=== PATIENT | male | born 1950 | race Caucasian/White ===

== ENCOUNTER → 2018-07-30 10:31 | Outpatient (CLI) | payer OTHER, SELFPAY ==
[2018-07-30 11:24] LABS: Add Manual Diff / Slide Review NO; Basophils Percent Auto 0.9 % (0-2); Eosinophils Percent Auto 3.6 % (2-4); Hematocrit 43.7 % (41-53); Hemoglobin 15.1 g/dL (13.5-17.5); Lymphocytes Percent Auto 27.3 % (25-40); Mean Corpuscular HGB Conc 34.5 % (30-36); Mean Corpuscular Hemoglobin 32.2 PG (26-34); Mean Corpuscular Volume 93.3 fL (80-100); Monocytes Percent Auto 9.2 % (3-14); Neutrophils Absolute Auto 3100 /uL (3000-5900); Platelet Count 162 X10^3/uL (150-400); Red Blood Cell Count 4.68 X10^6/uL (4.5-5.9); Red Cell Distribution Width 13.2 % (11.6-14.8); White Blood Cell Count 5.2 X10^3/uL (4.5-11.0)
[2018-07-30 11:33] LABS: Alanine Aminotransferase 47 IU/L (21-72); Albumin 4.3 g/dL (3.5-5.0); Albumin Globulin Ratio 1.6 (1.0-2.8); Alkaline Phosphatase 48 U/L (38-126); Aspartate Aminotransferase 38 IU/L (17-59); Bilirubin Total 0.8 mg/dL (0.2-1.3); Blood Urea Nitrogen 19 mg/dL (9-20); Calcium 9.3 mg/dL (8.4-10.2); Carbon Dioxide 28 mmol/L (22-32); Chloride 109 mmol/L (98-107); Cholesterol 159 mg/dL (140-199); Estimated Glomerular Filt Rate > 60.0 mL/min (>60); Globulin 2.7 g/dL (1.7-4.1); Glucose 98 mg/dL (80-110); HDL Cholesterol 47 mg/dL (40-60); HEMOLYSIS < 15 (0-50); LDL Cholesterol Calculated 90 mg/dL (<100); Potassium 4.3 mmol/L (3.4-5.1); Sodium 145 mmol/L (137-145); Triglycerides 110 mg/dL (35-150)
[2018-08-01 18:53] LABS: HLA B27 NEGATIVE (Negative)
== END ==
PROVIDERS: PCP Physician Assistant; Visit Provider Physician Assistant
DX: M54.5 Low back pain (principal); E78.5 Hyperlipidemia, unspecified
CPT/HCPCS: 36415; 80053; 80061; 85025; 86812

== ENCOUNTER → 2018-10-31 06:25 | Outpatient (CLI) | payer OTHER, SELFPAY ==
--- NOTE | 2018-10-31 | DI.RAD.S_ITS ---
PROCEDURE: XR KNEE LT 3V INDICATIONS: LEFT KNEE PAIN TECHNIQUE: 3 views of the knee were acquired. COMPARISON: [facility], , KNEE 1-2 VIEWS LEFT, 10/19/2016, 17:40. FINDINGS: Bones: Patient is status post prior left total knee arthroplasty. Alignment of left knee is anatomic. No gross hardware loosening or failure. No fractures or dislocations. No suspicious bony lesions. Soft tissues: No joint effusion. No suspicious soft tissue calcifications. IMPRESSION: Post left total knee arthroplasty with anatomic left knee alignment. No gross hardware complication. Dictated by: Harsh Ray M.D. on 10/31/2018 at 9:07 Approved by: Harsh Ray M.D. on 10/31/2018 at 9:08
== END ==
PROVIDERS: Family Provider Internal Medicine; PCP Physician Assistant; Visit Provider Physician Assistant
DX: M25.562 Pain in left knee (principal); Z96.652 Presence of left artificial knee joint
CPT/HCPCS: 73562

== ENCOUNTER → 2019-07-19 16:26 | Outpatient (CLI) | payer OTHER, SELFPAY ==
--- NOTE | 2019-07-19 | DI.RAD.S_ITS ---
PROCEDURE: XR SHOULDER LT MIN 2V INDICATIONS: left shoulder pain TECHNIQUE: 3 views of the shoulder were acquired. COMPARISON: None. FINDINGS: Bones: No fractures or dislocations. No suspicious bony lesions. Visualized ribs appear intact. Mild acromioclavicular and moderate glenohumeral joint narrowing with periarticular osteophyte formation. Superior subluxation of humeral head. Soft tissues: No suspicious soft tissue calcifications. IMPRESSION: 1. 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 2. Superior migration of the humeral head consistent with rotator cuff pathology and/or muscle atrophy. If indicated MRI could be performed to further evaluate the soft tissues. Dictated by: Raudel COLVIN Interpreted: Ally Bender MD on 07/19/2019 at 16:56 Approved by: Ally Bender M.D. on 07/19/2019 at 17:48
== END ==
PROVIDERS: Family Provider Internal Medicine; PCP Physician Assistant; Visit Provider Student in an Organized Health Care Education/Training Program
DX: M25.512 Pain in left shoulder (principal); M19.012 Primary osteoarthritis, left shoulder; M51.37 Other intervertebral disc degeneration, lumbosacral region
CPT/HCPCS: 73030

== ENCOUNTER 2019-09-04 15:15 | Outpatient (RCR) | payer OTHER, SELFPAY ==
--- NOTE | 2019-08-19 17:30 | PT.OIE ---
Current Diagnoses Pain in left shoulder (08/19/19) Sciatica, right side (08/19/19) Abnormal posture (08/19/19) Weakness (08/19/19) Visit Care Team Role Provider Type Asia Wilkinson PA-C Primary Care Provider Advanced Clinical Counselor Specialty: Internal Medicine Address: [address] [place] [id number] Email: [email or web address] Melendrez MD Family Provider Physician Specialty: Internal Medicine Address: [address] [place] [address], [phone] Email: Yelitza Gonzales PA-C Attending Provider Physician Specialty: Internal Medicine Address: [address] [place] [address], [id number] Email: [email or web address] Physical Therapy Initial Evaluation PT-OP-A Visit Information Start: 08/19/19 17:28 Freq: Status: Active Protocol: Document 08/19/19 16:45 DCW (Rec: 08/19/19 17:57 DCW [id number]) Out-Patient Physical Therapy Visit Information Visit Information Visit Type Initial Evaluation Visit Start Time 16:45 Visit Stop Time 17:30 Total Visit Minutes 45 Visit Number 1 Number of AUTOMOBILE SPRING REPAIRER Visits 0 Evaluation Information Evaluation Date 08/19/19 PT-OP-B Current Condition Start: 08/19/19 17:28 Freq: Status: Active Protocol: Document 08/19/19 16:45 DCW (Rec: 08/19/19 17:57 DCW [id number]) Current Condition History of Current Condition Onset Date ~one year Current Complaints Left shoulder and mid-back pain, right hip/leg pain History of Current Condition Pt is a 69 year old male who presents to skilled PT with multiple complaints today. Pt reports he has a several year history of left shoulder pain. Notes that he frequently has a painful clicking when lowering his left arm in abduction, as well as an associated persistent dull ache in the muscle that attaches the shoulder blade to the spine. Pt admits that this pain doesn't limit him too much, but prevents him from sleeping some nights. Additionally, pt complains of a one year history of posterior right hip pain, which typically radiates down the back of his leg to his knee. Pt reports it is worse when he sits for long periods of time. Pt also reports general back pain, which prevents him from standing still longer than 30 minutes. Always worse when he is inactive. Prior Treatments and Tests Shoulder MRI: 1. 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 2. Superior migration of the humeral head consistent with rotator cuff pathology and/or muscle atrophy. If indicated MRI could be performed to further evaluate the soft tissues. per Ally Bender MD on 2018 PT-OP-C Subjective Start: 08/19/19 17:28 Freq: Status: Active Protocol: Document 08/19/19 16:45 DCW (Rec: 08/19/19 17:57 DCW [id number]) Patient Questionnaires Oswestry Low Back Index Oswestry Score 34% Oswestry Impairment 20 to 39% Impaired (Score 20- 39) Quick Dash- Upper Extremity Quick Dash UE Score 15.91% Quick Dash UE Impairment 1 to 19% Impaired (Score 1-19) OP-PT Pain Assessment Pain Assessment Grid Paper Pain Assessment Grid Completed Yes Location Right Posterior Hip Intensity 4 Scale Used Numeric (1 - 10) Description Pressure,Stabbing,Tightness Upper Back Intensity 5 Scale Used Numeric (1 - 10) Description Aching,Dull Left Shoulder Intensity 3 Scale Used Numeric (1 - 10) Description- Other Clicking PT-OP-F Manual Assessment Start: 08/19/19 17:28 Freq: Status: Active Protocol: Document 08/19/19 16:45 DCW (Rec: 08/19/19 17:57 DCW [id number]) Manual Assessments Soft Tissue Assessment Soft Tissue Mobility Assessment Moderate-Severe tone R piriformis, tenderness to palpation 3/4 - Wincing and withdraw Mild tone left rhomboids, tenderness to palpation 1/4 - Complaint of pain Joint Mobility Assessment Joint Mobility Assessment noticeable clicking in shoulder ~30% of the time as pt lowers left arm from abduction left scapular winging PT-OP-J Posture/Palpation/Skin Start: 08/19/19 17:28 Freq: Status: Active Protocol: Document 08/19/19 16:45 DCW (Rec: 08/20/19 11:54 DCW [id number]) Posture Evaluation Position Sitting Shoulder Posture (L) Rounded Scapula Posture (L) Protracted,(L) Rotated Up, (L) Winged PT-OP-K Range of Motion Start: 08/19/19 17:28 Freq: Status: Active Protocol: Document 08/19/19 16:45 DCW (Rec: 08/20/19 11:54 DCW [id number]) Shoulder Goniometric Range of Motion Shoulder Left Active Shoulder ROM WFL Yes PT-OP-L Special Tests Start: 08/19/19 17:28 Freq: Status: Active Protocol: Document 08/19/19 16:45 DCW (Rec: 08/20/19 11:54 DCW [id number]) Special Tests Shoulder Special Tests Painful Arc Test Results L Positive when lowering Apprehension Test Test Results Negative Clunk Test Test Results Negative Drop Arm Rotator Cuff Test Results Negative Ritchie Meet Impingement Test Results Negative Passive ER Rotator Cuff Test Results Negative Lift-Off Rotator Cuff Test Results Negative Belly Press Test Results Negative AC Joint Compression Test Results Negative Hip Special Tests Piriformis Test Results Positive Straight Leg Raise Test Results Negative Scour Test Test Results Negative Posterior Labral Test Test Results Negative Betancur's Compression Test Results Negative NEELIMA Test Results Negative PT-OP-M Strength Start: 08/19/19 17:28 Freq: Status: Active Protocol: Document 08/19/19 16:45 DCW (Rec: 08/20/19 11:54 DCW [id number]) Shoulder Strength Shoulder Manual Muscle Testing Left Flexion 4+ Good+ Extension 5 Normal Abduction (C5) 5 Normal Adduction 5 Normal External Rotation 4 Good Internal Rotation 5 Normal Comments Pain with left resisted ER Hip Strength Hip Manual Muscle Testing Left Flexion (L2) 5 Normal Extension (S1) 5 Normal Abduction 5 Normal Adduction 5 Normal External Rotation 5 Normal Internal Rotation 4- Good- PT-OP-Q Treatments Start: 08/19/19 17:28 Freq: Status: Active Protocol: Document 08/19/19 16:45 DCW (Rec: 08/20/19 11:58 DCW [id number]) Therapeutic Exercises Supine Exercises Serratus punch Supine Exercise Name Serratus punch Side bilateral Piriformis Stretch Supine Exercise Name Figure-4, Dcnf-ly-Axmwthdj shoulder Side right Sidelying Exercises Reverse Clamshell Sidelying Exercise Name Reverse Clamshell Side right Sitting Exercises Self STM Sitting Exercise Name Self piriformis mobilization / c Tennis ball Side right PT-OP-T Assessment and Plan Start: 08/19/19 17:28 Freq: Status: Active Protocol: Document 08/19/19 16:45 DCW (Rec: 08/20/19 14:00 DCW [id number]) Physical Therapy Assessment Rehab Potential Rehabilitation Potential Excellent Evaluation Complexity Number of Personal Factors/Comorbidities 1-2 Number of Body Systems Impaired 1-2 Clinical Presentation at Evaluation Stable Impairments Impairments Activity Tolerance,Pain, Posture,ROM,Soft Tissue Mobility,Strength,Tone Goals Three Impairment Pt presents with left scapular winging Longterm Goal (LTG) Pt to exhibit equal posture bilaterally throughout his shoulder blades. 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 LTG Duration 10/19/19 One Impairment Pt does not have an appropriate home exercise program Short Term Goal (STG) Pt to be independent and compliant with an appropriate HEP STG Duration 09/18/19 Assessment Summary Assessment Pt presents with a few separate complaints, all relatively mild. The first complaint, shoulder pain and clicking, appears to be associated with left parascapular weakness and decreased scapulothoracic rhythm. At rest, his left shoulder blade wings out, which changes the positioning of the GH joint, likely causing his pain and clicking. Pt showed no signs of rotator cuff or labral involvement. Pt also has some mild rhomboid /parascapular tightness on the left, likely responsible for his mid-back aching. Secondly, pt's complaints of right posterior hip pain which radiates down to his knee appears to be due to a severely tight piriformis. No indications of lumbar or hip joint involvement, and pt exhibits increased tone and tenderness with palpation of the piriformis. Pt should improve with focus on STM and flexibility, as well as IR strengthening. Pt overall is in very good shape, and is motivated to work hard to improve on his current condition. It is likely that pt will not need a long course of therapy prior to discharging to an independent program. Physical Therapy Plan Frequency and Duration Frequency of Treatment 2x/Week Duration of Treatment 8 weeks Plan of Care Start Date 08/19/19 Plan of Care End Date 10/14/19 Therapeutic Interventions Therapeutic Interventions Aquatic Therapy,Home Exercise Program,Joint Mobilizations, Manual Therapy,Patient/ Caregiver Education,Self-Care/ Home Management,Soft Tissue Mobilization,Therapeutic Exercises Modalities Cold Pack/Ice Massage,Hot Packs Next Visit Focus/Plan Next Note Type Treatment Note Next Visit Plan Piriformis stretching/STM, lower trap strengthening, shoulder strengthening
--- NOTE | 2019-08-19 17:30 | PT.OPPOC ---
Current Diagnoses Pain in left shoulder (08/19/19) Sciatica, right side (08/19/19) Abnormal posture (08/19/19) Weakness (08/19/19) Visit Care Team Role Provider Type Asia Wilkinson PA-C Primary Care Provider Advanced Swimming Pool Maintenance Supervisor Specialty: Internal Medicine Address: [address] [place] [id number] Email: [email or web address] Will Melendrez MD Family Provider Physician Specialty: Internal Medicine Address: [address] [place] [address], [phone] Email: [email or web address] Yelitza Gonzales PA-C Attending Provider Physician Specialty: Internal Medicine Address: [address] [place] [address], [id number] Email: [email or web address] Plan Of Care PT-OP-T Assessment and Plan Start: 08/19/19 17:28 Freq: Status: Active Protocol: Document 08/19/19 16:45 DCW (Rec: 08/20/19 14:00 DCW [id number]) Physical Therapy Assessment Rehab Potential Rehabilitation Potential Excellent Evaluation Complexity Number of Personal Factors/Comorbidities 1-2 Number of Body Systems Impaired 1-2 Clinical Presentation at Evaluation Stable Impairments Impairments Activity Tolerance,Pain, Posture,ROM,Soft Tissue Mobility,Strength,Tone Goals Three Impairment Pt presents with left scapular winging Healthcare Social Worker Goal (LTG) Pt to exhibit equal posture bilaterally throughout his shoulder blades. 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 LTG Duration 10/19/19 One Impairment Pt does not have an appropriate home exercise program Short Term Goal (STG) Pt to be independent and compliant with an appropriate HEP STG Duration 09/18/19 Assessment Summary Assessment Pt presents with a few separate complaints, all relatively mild. The first complaint, shoulder pain and clicking, appears to be associated with left parascapular weakness and decreased scapulothoracic rhythm. At rest, his left shoulder blade wings out, which changes the positioning of the GH joint, likely causing his pain and clicking. Pt showed no signs of rotator cuff or labral involvement. Pt also has some mild rhomboid /parascapular tightness on the left, likely responsible for his mid-back aching. Secondly, pt's complaints of right posterior hip pain which radiates down to his knee appears to be due to a severely tight piriformis. No indications of lumbar or hip joint involvement, and pt exhibits increased tone and tenderness with palpation of the piriformis. Pt should improve with focus on STM and flexibility, as well as IR strengthening. Pt overall is in very good shape, and is motivated to work hard to improve on his current condition. It is likely that pt will not need a long course of therapy prior to discharging to an independent program. Physical Therapy Plan Frequency and Duration Frequency of Treatment 2x/Week Duration of Treatment 8 weeks Plan of Care Start Date 08/19/19 Plan of Care End Date 10/14/19 Therapeutic Interventions Therapeutic Interventions Aquatic Therapy,Home Exercise Program,Joint Mobilizations, Manual Therapy,Patient/ Caregiver Education,Self-Care/ Home Management,Soft Tissue Mobilization,Therapeutic Exercises Modalities Cold Pack/Ice Massage,Hot Packs Next Visit Focus/Plan Next Note Type Treatment Note Next Visit Plan Piriformis stretching/STM, lower trap strengthening, shoulder strengthening Plan of Care Dates Plan of Care Start Date 08/19/19 Plan of Care End Date 10/14/19
--- NOTE | 2019-09-04 16:00 | PT.OTN ---
Current Diagnoses Pain in left shoulder (09/04/19) Sciatica, right side (09/04/19) Abnormal posture (09/04/19) Weakness (09/04/19) Physical Therapy Treatment Note PT-OP-A Visit Information Start: 08/19/19 17:28 Freq: Status: Active Protocol: Document 09/04/19 15:30 DCW (Rec: 09/04/19 15:59 DCW [id number]) Out-Patient Physical Therapy Visit Information Visit Information Visit Type Treatment Note Visit Start Time 15:30 Visit Stop Time 16:00 Total Visit Minutes 30 Visit Number 2 Number of INSTRUMENTATION ENGINEERING TECHNICIAN Visits 0 Evaluation Information Evaluation Date 08/19/19 PT-OP-B Current Condition Start: 08/19/19 17:28 Freq: Status: Active Protocol: Document 08/19/19 16:45 DCW (Rec: 08/19/19 17:57 DCW [id number]) Current Condition History of Current Condition Onset Date ~one year Current Complaints Left shoulder and mid-back pain, right hip/leg pain History of Current Condition Pt is a 69 year old male who presents to skilled PT with multiple complaints today. Pt reports he has a several year history of left shoulder pain. Notes that he frequently has a painful clicking when lowering his left arm in abduction, as well as an associated persistent dull ache in the muscle that attactes the shoulder blade to the spine. Pt admits that this pain doesn't limit him too much, but prevents him from sleeping some nights. Additionally, pt complains of a one year history of posterior right hip pain, which typically radiates down the back of his leg to his knee. Pt reports it is worse when he sits for long periods of time. Pt also reports general back pain, which prevents him from standing still longer than 30 minutes. Always worse when he is inactive. Prior Treatments and Tests Shoulder MRI: 1. 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 2. Superior migration of the humeral head consistent with rotator cuff pathology and/or muscle atrophy. If indicated MRI could be performed to further evaluate the soft tissues. per Ally Bender MD on 2018 PT-OP-C Subjective Start: 08/19/19 17:28 Freq: Status: Active Protocol: Document 09/04/19 15:30 DCW (Rec: 09/04/19 16:00 DCW [id number]) OP-PT Subjective Patient Comments Patient Comments Everything is feeling quite a bit better. It's almost like you know what you're doing. PT-OP-F Manual Assessment Start: 08/19/19 17:28 Freq: Status: Active Protocol: Document 08/19/19 16:45 DCW (Rec: 08/19/19 17:57 DCW [id number]) Manual Assessments Soft Tissue Assessment Soft Tissue Mobility Assessment Moderate-Severe tone R piriformis, tenderness to palpation 3/4 - Wincing and withdraw Mild tone left rhomboids, tenderness to palpation 1/4 - Complaint of pain Joint Mobility Assessment Joint Mobility Assessment noticeable clicking in shoulder ~30% of the time as pt lowers left arm from abduction left scapular winging PT-OP-J Posture/Palpation/Skin Start: 08/19/19 17:28 Freq: Status: Active Protocol: Document 08/19/19 16:45 DCW (Rec: 08/20/19 11:54 DCW [id number]) Posture Evaluation Position Sitting Shoulder Posture (L) Rounded Scapula Posture (L) Protracted,(L) Rotated Up, (L) Winged PT-OP-K Range of Motion Start: 08/19/19 17:28 Freq: Status: Active Protocol: Document 08/19/19 16:45 DCW (Rec: 08/20/19 11:54 DCW [id number]) Shoulder Goniometric Range of Motion Shoulder Left Active Shoulder ROM WFL Yes PT-OP-L Special Tests Start: 08/19/19 17:28 Freq: Status: Active Protocol: Document 08/19/19 16:45 DCW (Rec: 08/20/19 11:54 DCW [id number]) Special Tests Shoulder Special Tests Painful Arc Test Results L Positive when lowering Apprehension Test Test Results Negative Clunk Test Test Results Negative Drop Arm Rotator Cuff Test Results Negative Ritchie Meet Impingement Test Results Negative Passive ER Rotator Cuff Test Results Negative Lift-Off Rotator Cuff Test Results Negative Belly Press Test Results Negative AC Joint Compression Test Results Negative Hip Special Tests Piriformis Test Results Positive Straight Leg Raise Test Results Negative Scour Test Test Results Negative Posterior Labral Test Test Results Negative Betancur's Compression Test Results Negative NEELIMA Test Results Negative PT-OP-M Strength Start: 08/19/19 17:28 Freq: Status: Active Protocol: Document 08/19/19 16:45 DCW (Rec: 08/20/19 11:54 DCW [id number]) Shoulder Strength Shoulder Manual Muscle Testing Left Flexion 4+ Good+ Extension 5 Normal Abduction (C5) 5 Normal Adduction 5 Normal External Rotation 4 Good Internal Rotation 5 Normal Comments Pain with left resisted ER Hip Strength Hip Manual Muscle Testing Left Flexion (L2) 5 Normal Extension (S1) 5 Normal Abduction 5 Normal Adduction 5 Normal External Rotation 5 Normal Internal Rotation 4- Good- PT-OP-Q Treatments Start: 08/19/19 17:28 Freq: Status: Active Protocol: Document 09/04/19 15:30 DCW (Rec: 09/04/19 15:59 DCW [id number]) Therapeutic Exercises Prone Exercises External Rotation Prone Exercise Name Prone ER in 90 abduction Side bilateral Flexion Prone Exercise Name Prone Flex Side bilateral Extension Prone Exercise Name Prone Ext Side bilateral Horizontal Abduction Prone Exercise Name Prone H Abduction Side bilateral Sitting Exercises Modified [place] Sitting Exercise Name Piriformis stretch Side right Standing Exercises Reverse Flys Standing Exercise Name Reverse Flys Side bilateral Resistance Lv 4 Equipment Used T-band Rows Standing Exercise Name Rows Side bilateral Resistance Lv 3 Equipment Used T-band Shoulder Extension Standing Exercise Name Extension Side bilateral Resistance Lv 4 Equipment Used T-band Manual Therapy Treatment Soft Tissue Mobilization Piriformis Body Location Piriformis Mobilization Type Strumming,Sustained Pressure, Trigger Point Release Intensity/Depth Deep PT-OP-T Assessment and Plan Start: 08/19/19 17:28 Freq: Status: Active Protocol: Document 09/04/19 15:30 DCW (Rec: 09/04/19 15:59 DCW [id number]) Physical Therapy Assessment Impairments Impairments Activity Tolerance,Pain, Posture,ROM,Soft Tissue Mobility,Strength,Tone Goals Three Impairment Pt presents with left scapular winging Alf Goal (LTG) Pt to exhibit equal posture bilaterally throughout his shoulder blades. 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 LTG Duration 10/19/19 One Impairment Pt does not have an appropriate home exercise program Short Term Goal (STG) Pt to be independent and compliant with an appropriate HEP STG Duration 09/18/19 Assessment Summary Assessment Pt doing very well so far with his HEP, feels comfortable continuing independently at this time. Pt's chart will be left open for one month in case he runs into any problems or concerns, he will call for a follow-up visit. Physical Therapy Plan Frequency and Duration Frequency of Treatment 2x/Week Duration of Treatment 8 weeks Plan of Care Start Date 08/19/19 Plan of Care End Date 10/14/19 Therapeutic Interventions Therapeutic Interventions Aquatic Therapy,Home Exercise Program,Joint Mobilizations, Manual Therapy,Patient/ Caregiver Education,Self-Care/ Home Management,Soft Tissue Mobilization,Therapeutic Exercises Modalities Cold Pack/Ice Massage,Hot Packs Next Visit Focus/Plan Next Note Type Treatment Note Next Visit Plan Piriformis stretching/STM, lower trap strengthening, shoulder strengthening
== END 2019-09-05 12:58 ==
LOC: PHYS 15:15
PROVIDERS: Family Provider Internal Medicine; PCP Physician Assistant; Visit Provider Student in an Organized Health Care Education/Training Program
DX: M54.31 Sciatica, right side (principal); M25.512 Pain in left shoulder; R29.3 Abnormal posture; R53.1 Weakness
CPT/HCPCS: 97110; 97161

== ENCOUNTER → 2020-01-09 14:13 | Outpatient (CLI) | payer MEDICARE, SELFPAY ==
--- NOTE | 2020-01-09 | DI.RAD.S_ITS ---
PROCEDURE: XR CERVICAL SPINE 2V OR 3V INDICATIONS: radicular pain in left arm TECHNIQUE: 4 view(s) of the cervical spine were acquired. COMPARISON: None. FINDINGS: Bones: No fractures or dislocations to the C7 level. The lateral masses of C1 appear intact on the odontoid view. No suspicious bony lesions. There is mild to moderate degenerative disc disease at C5 and C5, C5-C6 and C6-C7. Large anterior osteophytes are seen at C5 and C7. Soft tissues: No prevertebral soft tissue swelling. IMPRESSION: 1. Mild to moderate degenerative disc disease in lower cervical spine. 2. Large anterior osteophytes in the lower cervical spine. Dictated by: Jerome Hilliard M.D. on 01/09/2020 at 17:21 Approved by: Jerome Hilliard M.D. on 01/09/2020 at 17:24
[2020-01-09 20:04] LABS: Add Manual Diff / Slide Review NO; Basophils Absolute Auto 0 /uL (0-100); Basophils Percent Auto 0.5 % (0-2); Eosinophils Absolute Auto 200 /uL (0-450); Eosinophils Percent Auto 3.1 % (2-4); Hematocrit 44.5 % (41-53); Hemoglobin 14.9 g/dL (13.5-17.5); Lymphocytes Absolute Auto 1400 /uL (1100-4500); Lymphocytes Percent Auto 28.4 % (25-40); Mean Corpuscular HGB Conc 33.6 % (30-36); Mean Corpuscular Hemoglobin 31.6 PG (26-34); Monocytes Absolute Auto 500 /uL (0-900); Monocytes Percent Auto 9.5 % (3-14); Neutrophils Absolute Auto 2900 /uL (1500-7000); Neutrophils Percent Auto 58.5 % (50-75); Platelet Count 156 X10^3/uL (150-400); Red Blood Cell Count 4.73 X10^6/uL (4.5-5.9); Red Cell Distribution Width 13.2 % (11.6-14.8)
[2020-01-09 20:25] LABS: Erythrocyte Sedimentation Rate 3 MM/HR (0-15)
[2020-01-09 20:26] LABS: Alanine Aminotransferase 40 IU/L (<50); Albumin 4.4 g/dL (3.5-5.0); Albumin Globulin Ratio 1.8 (1.0-2.8); Alkaline Phosphatase 58 U/L (38-126); Aspartate Aminotransferase 45 IU/L (17-59); BUN Creatinine Ratio 16.7 (6-22); Bilirubin Total 0.6 mg/dL (0.2-1.3); Blood Urea Nitrogen 15 mg/dL (9-20); Calcium 9.5 mg/dL (8.4-10.2); Carbon Dioxide 24 mmol/L (22-32); Chloride 107 mmol/L (98-107); Cholesterol 121 mg/dL (140-199); Estimated Glomerular Filt Rate > 60.0 mL/min (>60); Globulin 2.5 g/dL (1.7-4.1); Glucose 104 mg/dL (80-110); HDL Cholesterol 49 mg/dL (40-60); HEMOLYSIS 26 (0-50); LDL Cholesterol Calculated 54 mg/dL (<100); Potassium 4.4 mmol/L (3.4-5.1); Sodium 140 mmol/L (137-145); Total Protein 6.9 g/dL (6.3-8.2); Triglycerides 91 mg/dL (35-150); Uric Acid 6.9 mg/dL (3.5-8.5)
[2020-01-09 20:28] LABS: Rheumatoid Factor 15.4 IU/mL (<12.0)
[2020-01-09 20:44] LABS: C-Reactive Protein Quant < 0.5 mg/dL (<1.0)
[2020-01-14 08:49] LABS: ANA Screen, IFA NEGATIVE (NEGATIVE)
== END ==
PROVIDERS: Family Provider Internal Medicine; PCP Physician Assistant; Referring Provider Physician Assistant; Visit Provider Physician Assistant
DX: M79.602 Pain in left arm (principal); M50.122 Cervical disc disorder at C5-C6 level with radiculopathy
CPT/HCPCS: 72040; 80053; 80061; 84550; 85025; 85651; 86038; 86140; 86430

== ENCOUNTER → 2020-01-17 10:11 | Outpatient (CLI) | payer MEDICARE, SELFPAY ==
--- NOTE | 2020-01-17 | DI.MRI.S_ITS ---
PROCEDURE: MR THORACIC SPINE WO CON INDICATIONS: Upper back pain. Left arm radicular pain TECHNIQUE: Noncontrast sagittal T1 spine echo and T2 fast spin echo, sagittal STIR, axial T1 and T2 fast spin echo through the thoracic spine. COMPARISON: [facility], MR, MR CERVICAL SPINE WO CON, 01/17/2020, 15:12. FINDINGS: Image quality: This examination is limited by involuntary motion artifact. Images are repeated, with some improvement. Alignment and Curvature: Mild levoconvex scoliotic curvature is noted. Bone Marrow: Marrow is of normal overall signal. No acute vertebral body compression fractures. Spinal Cord: Visualized spinal cord is normal in size and signal. Paraspinous Soft Tissues: No paravertebral masses. Miscellaneous: At the T6-T7 level, there is a mild central disc protrusion seen, with mild central canal narrowing and minimal mass effect on the ventral spinal cord. No neural foraminal narrowing is seen. At the T7-T8 level, there is a central disc protrusion seen, with mild to moderate central canal narrowing and mild mass effect upon the ventral spinal cord, as on series 10 image 8. Mild to moderate bilateral neural foraminal narrowing can be seen at this level. At the T8-T9 level, there is a mild central disc protrusion, with mild central canal narrowing and no significant mass effect upon the ventral spinal cord. No significant neural foraminal narrowing is seen. At the T9-T10 level, there is a mild central disc protrusion, with minimal to mild central canal narrowing. Moderate bilateral neural foraminal narrowing can be seen at this level. Milder degenerative changes are seen elsewhere. IMPRESSION: Multiple levels of thoracic spine degenerative change are seen, which are overall most prominent at the T7-T8 level. Dictated by: Scott Sinclair M.D. on 01/17/2020 at 16:19 Approved by: Scott Sinclair M.D. on 01/17/2020 at 16:23
--- NOTE | 2020-01-17 | DI.MRI.S_ITS ---
PROCEDURE: MR CERVICAL SPINE WO CON INDICATIONS: Upper back pain. Left arm radicular pain TECHNIQUE: Noncontrast sagittal T1 spin echo and T2 fast spin echo, sagittal STIR, foraminal oblique sagittal T2 fast spin echo, and axial gradient echo or T2 fast spin echo through the cervical spine. COMPARISON: [facility], CR, XR CERVICAL SPINE 2V OR 3V, 01/09/2020, 14:15. [facility], MR, MR THORACIC SPINE WO CON, 01/17/2020, 15:34. FINDINGS: Image quality: Excellent. Alignment and Curvature: There is normal bony alignment. Bone Marrow: Marrow demonstrates normal overall signal. Spinal Cord: Visualized spinal cord has normal size and signal. No cerebellar tonsillar herniation. Paraspinous Soft Tissues: No paravertebral masses. Prevertebral soft tissues are normal in thickness. C2-C3: The disc height is well-preserved. Loss of disc signal is seen at this level. A mild degree of generalized disc osteophyte complex is seen. There is a mild central disc protrusion, as on series 5 image 14. No neural foraminal narrowing is seen. Mild to moderate central canal narrowing is seen. C3-C4: The disc height is well-preserved. Loss of disc signal is seen at this level. A mild degree of generalized disc osteophyte complex is seen. There is moderate to severe bilateral neural foraminal narrowing seen. Moderate central canal narrowing is seen. There is associated mass effect upon the ventral spinal cord. C4-C5: The disc height is well-preserved. Loss of disc signal is seen at this level. Mild to moderate disc bulge is seen, which is eccentric to the right side. Mild to moderate facet hypertrophy is seen. There is moderate to severe right-sided and at least moderate left-sided neural foraminal narrowing seen. Mild to moderate central canal narrowing is seen, with associated mass effect upon the ventral spinal cord. C5-C6: Mild loss of disc height is seen. Loss of disc signal is seen. Bridging endplate osteophytes are seen. Moderate disc osteophyte complex is seen, which is eccentric to the right side. Moderate facet joint hypertrophy is seen. There is at least moderate right-sided and moderate left-sided neural foraminal narrowing seen. Moderate central canal narrowing is seen. There is associated mass effect upon the ventral spinal cord. C6-C7: Mild loss of disc height is seen. Loss of disc signal is seen. Moderate disc osteophyte complex is seen, which is eccentric to the right. Bridging endplate osteophytes are seen. Mild facet joint hypertrophy is seen. There is moderate to severe right-sided and mild to moderate left-sided neural foraminal narrowing seen. [id number] central canal narrowing is seen, with mild mass effect upon the ventral spinal cord. C7-T1: Mild loss of disc height is seen. Loss of disc signal is seen. Moderate generalized disc osteophyte complex is seen. Mild to moderate facet hypertrophy is seen. There is moderate right-sided and no significant left-sided neural foraminal narrowing seen. Mild central canal narrowing is seen. IMPRESSION: Multiple levels of cervical spine degenerative change are seen, which are overall most prominent at C5-C6 and C6-C7. Dictated by: Scott Sinclair M.D. on 01/17/2020 at 15:58 Approved by: Scott Sinclair M.D. on 01/17/2020 at 16:12
== END ==
PROVIDERS: Family Provider Internal Medicine; PCP Physician Assistant; Referring Provider Physician Assistant; Visit Provider Physician Assistant
DX: M47.22 Other spondylosis with radiculopathy, cervical region (principal); M47.24 Other spondylosis with radiculopathy, thoracic region; M51.37 Other intervertebral disc degeneration, lumbosacral region
CPT/HCPCS: 72141; 72146

== ENCOUNTER → 2020-06-04 09:03 | Outpatient (CLI) | payer MEDICARE, SELFPAY ==
--- NOTE | 2020-06-04 | DI.MRI.S_ITS ---
PROCEDURE: MR SHOULDER RT WO CON INDICATIONS: Bursitis of right shoulder TECHNIQUE: Noncontrast oblique coronal T2 fast spin echo with fat saturation, oblique sagittal T1 spin echo and T2 fast spin echo with fat saturation, axial T1 spin echo and T2 fast spin echo with fat saturation through the shoulder. COMPARISON: None. FINDINGS: Image quality: Excellent. Rotator cuff: Tendinosis and low to moderate grade articular and bursal surface partial thickness tear involving distal supraspinatus and infraspinatus at their insertions on the greater tuberosity is seen extending to the musculotendinous junction. Distal subscapularis tendinosis and low-grade intrasubstance partial-thickness tear is seen. Sagittal images demonstrate no significant muscle atrophy. Bones and bursae: No bone marrow contusions or fractures. Moderate acromioclavicular joint osteoarthritic changes are seen with downward osteophyte formation depressing the musculotendinous junction of supraspinatus. Mild to moderate glenohumeral joint osteoarthritis is also noted. Small amount of joint fluid and subacromial subdeltoid bursal fluid is seen. Capsule and soft tissues: In the absence of intra-articular contrast, there is suggestion of subtle superior anterior labral tear at 12 to 1:00 position. There is also suggestion of anterior-inferior labral tear at 4 to 5:00 position. The glenohumeral ligaments appear intact. Tendinosis and moderate grade intrasubstance partial-thickness tear involving proximal intra-articular portion of long head of biceps is seen. The rotator interval appears normal, without fibrosis. The coracohumeral ligament is normal in thickness. IMPRESSION: 1. Tendinosis and low to moderate grade articular and bursal surface partial thickness tear involving distal supraspinatus and infraspinatus. Distal subscapularis tendinosis and low-grade intrasubstance partial-thickness tear. No full-thickness rotator cuff tendon rupture. No significant muscle atrophy. 2. Moderate acromioclavicular joint osteoarthritis. Mild to moderate glenohumeral joint osteoarthritis. 3. Finding is concerning for subtle superior anterior labral tear at 12 to 1:00 position and anterior-inferior labral tear 4 to 5:00 position. 4. Tendinosis and low to moderate grade intrasubstance partial-thickness tear involving intra-articular portion of long head of biceps. Dictated by: Harsh Ray M.D. on 06/04/2020 at 11:02 Approved by: Harsh Ray M.D. on 06/04/2020 at 11:17
== END ==
PROVIDERS: Family Provider Internal Medicine; PCP Physician Assistant; Referring Provider Orthopaedic Surgery; Visit Provider Orthopaedic Surgery
DX: M75.51 Bursitis of right shoulder (principal); M75.111 Incomplete rotator cuff tear or rupture of right shoulder, not specified as traumatic; M19.011 Primary osteoarthritis, right shoulder; S46.111A Strain of muscle, fascia and tendon of long head of biceps, right arm, initial encounter
CPT/HCPCS: 73221

== ENCOUNTER → 2020-12-03 18:48 | Outpatient (ROUT) | payer OTHER, SELFPAY ==
[2020-12-03 19:01] LABS: Add Manual Diff / Slide Review NO; Basophils Absolute Auto 0 /uL (0-100); Basophils Percent Auto 0.6 % (0-2); Eosinophils Absolute Auto 200 /uL (0-450); Eosinophils Percent Auto 2.4 % (2-4); Hemoglobin 15.4 g/dL (13.5-17.5); Lymphocytes Absolute Auto 1500 /uL (1100-4500); Mean Corpuscular HGB Conc 33.5 % (30-36); Mean Corpuscular Hemoglobin 32.5 PG (26-34); Mean Corpuscular Volume 96.8 fL (80-100); Monocytes Absolute Auto 500 /uL (0-900); Monocytes Percent Auto 8.3 % (3-14); Neutrophils Absolute Auto 4300 /uL (1500-7000); Neutrophils Percent Auto 65.7 % (50-75); Platelet Count 161 X10^3/uL (150-400); Red Blood Cell Count 4.75 X10^6/uL (4.5-5.9); Red Cell Distribution Width 13.5 % (11.6-14.8); White Blood Cell Count 6.6 X10^3/uL (4.5-11.0)
[2020-12-03 19:10] LABS: Alanine Aminotransferase 32 IU/L (<50); Albumin Globulin Ratio 1.5 (1.0-2.8); Alkaline Phosphatase 68 U/L (38-126); Aspartate Aminotransferase 38 IU/L (17-59); BUN Creatinine Ratio 21.6 (6-22); Bilirubin Total 0.5 mg/dL (0.2-1.3); Blood Urea Nitrogen 21 mg/dL (9-20); Calcium 9.2 mg/dL (8.4-10.2); Carbon Dioxide 28 mmol/L (22-32); Chloride 107 mmol/L (98-107); Cholesterol 185 mg/dL (140-199); Estimated Glomerular Filt Rate > 60.0 mL/min (>60); Globulin 2.7 g/dL (1.7-4.1); Glucose 99 mg/dL (80-110); HDL Cholesterol 67 mg/dL (40-60); HEMOLYSIS < 15 (0-50); LDL Cholesterol Calculated 82 mg/dL (<100); Potassium 4.1 mmol/L (3.4-5.1); Sodium 137 mmol/L (137-145); Total Protein 6.7 g/dL (6.3-8.2); Triglycerides 178 mg/dL (35-150)
== END ==
PROVIDERS: Family Provider Internal Medicine; PCP Physician Assistant; Visit Provider Physician Assistant
DX: E78.2 Mixed hyperlipidemia (principal)
CPT/HCPCS: 80053; 80061; 85025

== ENCOUNTER → 2020-12-15 17:20 | Outpatient (CLI) | payer MEDICARE, SELFPAY ==
[2020-12-15] MEDS: COVID-19 VACC #1, MRNA(MOD) 100 MCG/0.5 ML VIAL IM (17:53)
== END ==
PROVIDERS: Family Provider Internal Medicine; PCP Physician Assistant; Visit Provider Internal Medicine
DX: Z23 Encounter for immunization (principal)
CPT/HCPCS: 0011A; 91301

== ENCOUNTER → 2021-01-13 10:27 | Outpatient (CLI) | payer MEDICARE, SELFPAY ==
[2021-01-13] MEDS: COVID-19 VACC #2, MRNA(MOD) 100 MCG/0.5 ML VIAL IM (10:32)
== END ==
PROVIDERS: Family Provider Internal Medicine; PCP Physician Assistant; Visit Provider Internal Medicine
DX: Z23 Encounter for immunization (principal)
CPT/HCPCS: 0012A; 91301

== ENCOUNTER 2021-07-07 17:01 | Emergency (ER) | payer OTHER, SELFPAY ==
[2021-07-07 17:09] VITALS: BP 119/66; PULSE 82; RESP 16; TEMP 37.3; O2SAT 97
[2021-07-07 17:51] LABS: COVID19 -Nasal RAPID Negative (Negative)
--- NOTE | 2021-07-07 18:39 | ED.RECABL ---
HPI - Recheck/Abnormal Lab/Rx <Raudel Segura PA-C - Last Filed: 07/07/21 18:47> General Chief Complaint: Recheck/Abnormal Lab/Rx Stated Complaint: wants covid test Time Seen by Provider: 07/07/21 18:31 Source: patient Mode of arrival: Ambulatory History of Present Illness HPI narrative: Javan presents today with chief complaint possible exposure to COVID. Days ago he had a few episodes of nausea with vomiting which symptoms have now improved. They report that they had some house guests that stayed for a few days in their home that called today to tell them an individual that day were within the wedding prior to their visit tested positive for COVID. The house guests of the [place] do not have any symptoms at this time but are going to get tested today. Javan currently denies any significant symptoms at this time. They are both of vaccinated for COVID. Related Data Home Medications Medication Instructions Recorded Confirmed oxycodone 40 mg tablet,crush #0 03/16/12 06/07/18 resistant,extended release 12 hr (OxyContin) allopurinol 100 mg tablet 100 mg PO QDAY #0 10/06/16 06/07/18 colchicine 0.6 mg capsule 0.6 mg PO QDAY #0 10/06/16 06/07/18 minocycline 100 mg capsule 100 mg PO QDAY #0 10/06/16 06/07/18 simvastatin 40 mg tablet 40 mg PO HS #0 10/06/16 06/07/18 Previous Rx's Medication Instructions Recorded aspirin 81 mg chewable tablet 81 mg PO QDAY #30 ctb 10/21/16 hydroxyzine pamoate 25 mg capsule 25 mg PO Q4HP PRN #60 cap 10/21/16 oxycodone 10 mg tablet 10 mg PO Q4HP PRN #90 tab 10/21/16 Allergies Allergy/AdvReac Type Severity Reaction Status Date / Time No Known Drug Allergies Allergy Verified 12/15/20 17:24 Review of Systems <Raudel Segura PA-C - Last Filed: 07/07/21 18:47> Review of Systems Narrative: As per HPI Patient History <Raudel Segura PA-C - Last Filed: 07/07/21 18:47> Social History Smoking Status: Former smoker Smoking Status: Former smoker Exam <Raudel Segura PA-C - Last Filed: 07/07/21 18:47> Narrative Exam Narrative: Exam Narrative: Const General: cooperative, healthy appearing, comfortable, no acute distress, well developed and well groomed Nutritional Appearance: average body habitus Orientation: alert and oriented x3 HENMT Head: normal to inspection and atraumatic Ears: hearing grossly normal bilaterally Nose: external nose normal and nares normal Face and sinus: normal facial exam Neck Neck: normal visual inspection and supple Resp Effort & Inspection: normal respiratory effort, able to speak in complete sentences, no audible wheezes, not labored, no nasal flaring and no respiratory distress Neuro General: alert, oriented x3, gait normal, tone normal and moves all extremities Cognition: normal cognition Speech: speech normal Gait: normal gait Psych Appearance: grossly normal and well kempt Mental Status: mental status grossly normal Speech and Movement: speech and movement normal Mood: congruent mood Affect: normal affect Initial Vital Signs Initial Vital Signs: Vital Signs Temperature 99.1 F 07/07/21 17:09 Pulse Rate 82 07/07/21 17:09 Respiratory Rate 16 07/07/21 17:09 Blood Pressure 119/66 07/07/21 17:09 Pulse Oximetry 97 07/07/21 17:09 <Charlee Trujillo MD - Last Filed: 07/07/21 22:25> Initial Vital Signs Initial Vital Signs: Vital Signs Temperature 99.1 F 07/07/21 17:09 Pulse Rate 82 07/07/21 17:09 Respiratory Rate 16 07/07/21 17:09 Blood Pressure 119/66 07/07/21 17:09 Pulse Oximetry 97 07/07/21 17:09 Course <Raudel Segura PA-C - Last Filed: 07/07/21 18:47> Orders Ordered: ED Orders 07/07/21 17:18 COVID19 -Nasal swab/Pre-Proc Stat Vital Signs Vital signs: Vital Signs - 8 hr 07/07/21 17:09 Temperature 99.1 F Pulse Rate 82 Respiratory Rate 16 Blood Pressure 119/66 Pulse Oximetry 97 <Charlee Trujillo MD - Last Filed: 07/07/21 22:25> Orders Ordered: ED Orders 07/07/21 17:18 COVID19 -Nasal swab/Pre-Proc Stat Vital Signs Vital signs: Vital Signs - 8 hr 07/07/21 17:09 Temperature 99.1 F Pulse Rate 82 Respiratory Rate 16 Blood Pressure 119/66 Pulse Oximetry 97 MDM - Recheck/Abnormal Lab/Rx <Raudel Segura PA-C - Last Filed: 07/07/21 18:47> Lab Data Labs: Lab Results 07/07/21 Range/Units 17:18 SARS-CoV-2 (PCR) Negative (Negative) MDM Narrative Medical decision making narrative: Patient is well-appearing at this time and does not have any significant symptoms. He is fully vaccinated against COVID. This potential exposure would be minimal if there house guests also test negative. Recommend following up with PCP for any additional concerns or complaints. Patient verbalizes understanding and agrees to plan and has no further concerns at this time. Thank you A [id number] system was used with the dictation of this note. Please disregard any spelling or grammatical errors. <Charlee Trujillo MD - Last Filed: 07/07/21 22:25> Lab Data Labs: Lab Results 07/07/21 Range/Units 17:18 SARS-CoV-2 (PCR) Negative (Negative) Discharge Plan Departure Patient Disposition: Home Clinical Impression: Encounter for laboratory testing for COVID-19 virus Instructions: DI for COVID-19 (Suspected or Confirmed ) Activity Restrictions/Additional Instructions: It was nice to meet you both this evening. Please follow-up with your PCP for any additional concerns or complaints. Thank you Raudel Segura PAC Prescriptions: No Action oxycodone [OxyContin] 40 MG tablet,oral only,ext.rel.12 hr Qty: 0 RF: 0 colchicine 0.6 MG capsule 0.6 mg PO QDAY Qty: 0 RF: 0 minocycline 100 MG capsule 100 mg PO QDAY Qty: 0 RF: 0 allopurinol 100 MG tablet 100 mg PO QDAY Qty: 0 RF: 0 simvastatin 40 MG tablet 40 mg PO HS Qty: 0 RF: 0 hydroxyzine pamoate 25 MG capsule 25 mg PO Q4HP PRNQty: 60 RF: 0 oxycodone 10 MG tablet 10 mg PO Q4HP PRNQty: 90 RF: 0 aspirin 81 MG tablet,chewable 81 mg PO QDAY Qty: 30 RF: 0 Referrals: Asia Wilkinson PA-C [Primary Care Provider] - <Charlee Trujillo MD - Last Filed: 07/07/21 22:25> Cosign ED Attending Cosignature Attestation: I was immediately available in the department for consultation throughout this patient's visit. I agree with documentation as above. Charlee Trujillo MD
== END 2021-07-07 18:54 | disposition home or self-care (01) ==
PROVIDERS: Emergency Medicine; Emergency Provider Physician Assistant; Family Provider Internal Medicine; PCP Physician Assistant
DX: Z20.822 Contact with and (suspected) exposure to COVID-19 (principal)
CPT/HCPCS: 87635; 99281; 99282; C9803

== ENCOUNTER → 2023-01-24 11:27 | Outpatient (CLI) | payer OTHER, SELFPAY ==
[2023-01-24 12:55] LABS: Hemoglobin A1C% w Est Avg Glu 5.8 % (4.0-6.0)
[2023-01-24 12:56] LABS: Add Manual Diff / Slide Review NO; Basophils Absolute Auto 0 /uL (0-100); Basophils Percent Auto 0.8 % (0-2); Eosinophils Absolute Auto 200 /uL (0-450); Eosinophils Percent Auto 3.8 % (2-4); Hematocrit 43.1 % (41-53); Hemoglobin 14.3 g/dL (13.5-17.5); Lymphocytes Absolute Auto 1600 /uL (1100-4500); Lymphocytes Percent Auto 28.9 % (25-40); Mean Corpuscular HGB Conc 33.2 % (30-36); Mean Corpuscular Hemoglobin 31.1 PG (26-34); Mean Corpuscular Volume 93.6 fL (80-100); Monocytes Absolute Auto 400 /uL (0-900); Monocytes Percent Auto 7.6 % (3-14); Neutrophils Absolute Auto 3200 /uL (1500-7000); Neutrophils Percent Auto 58.9 % (50-75); Platelet Count 162 X10^3/uL (150-400); Red Blood Cell Count 4.61 X10^6/uL (4.5-5.9); White Blood Cell Count 5.4 X10^3/uL (4.5-11.0)
[2023-01-24 13:14] LABS: Blood Urea Nitrogen 15 mg/dL (9-20); Calcium 9.1 mg/dL (8.4-10.2); Carbon Dioxide 27 mmol/L (22-32); Chloride 105 mmol/L (98-107); Estimated Glomerular Filt Rate > 60 mL/min (>60); Glucose 110 mg/dL (80-110); HEMOLYSIS < 15 (0-50); Potassium 4.1 mmol/L (3.4-5.1); Sodium 138 mmol/L (137-145)
[2023-01-24 16:23] LABS: Appearance Urine UA CLEAR; Bilirubin Urine UA NEGATIVE (NEGATIVE); Color Urine UA YELLOW; Glucose Urine UA NEGATIVE (Negative); Ketones Urine UA NEGATIVE (NEGATIVE); Leukocyte Esterase Urine UA NEGATIVE (NEGATIVE); Nitrite Urine UA NEGATIVE (Negative); Occult Blood Urine UA NEGATIVE (Negative); Protein Urine UA NEGATIVE (Negative); Urobilinogen Urine UA 0.2 E.U./dL (0.2)
[2023-01-24 16:31] LABS: Bacteria Urine Occasional (0-1); Culture Indicated Urine Specimen Cultured; RBC Urine None Seen (0-5/HPF); WBC Urine 5-10/HPF (0-5/HPF)
== END ==
PROVIDERS: Family Provider Internal Medicine; PCP Physician Assistant; Referring Provider Orthopaedic Surgery; Visit Provider Orthopaedic Surgery
DX: Z01.818 Encounter for other preprocedural examination (principal); R73.9 Hyperglycemia, unspecified; Z01.812 Encounter for preprocedural laboratory examination; N39.0 Urinary tract infection, site not specified
CPT/HCPCS: 36415; 80048; 81001; 83036; 85025; 87086; 93005

== ENCOUNTER → 2023-01-26 09:13 | Outpatient (CLI) | payer OTHER, SELFPAY ==
--- NOTE | 2023-01-26 09:14 | DI.US.S_ITS ---
PROCEDURE: US ABD AORTA ANEURYSM SCREEN INDICATIONS: SCREENING TECHNIQUE: Real time scanning was performed of the aorta and iliac arteries, with image documentation. COMPARISON: None. FINDINGS: Aorta: Proximal aortic diameter measures 2.9 cm. Mid-aorta measures 2.9 cm. Distal aortic diameter is 2.2 cm. Iliac arteries: Right common iliac artery measures 1.2 cm. Left common iliac artery measures 1.5 cm. IMPRESSION: Mild aortic ectasia. No evidence of abdominal aortic aneurysm. Follow-up ultrasound examination in 5 years is recommended. Dictated by: Manolo Christie M.D. on 01/26/2023 at 12:05 Transcribed by: GASTON on 01/26/2023 at 12:05 Approved by: Manolo Christie M.D. on 01/26/2023 at 16:26
== END ==
PROVIDERS: Family Provider Internal Medicine; PCP Physician Assistant; Referring Provider Physician Assistant; Visit Provider Physician Assistant
DX: Z13.6 Encounter for screening for cardiovascular disorders (principal); I77.819 Aortic ectasia, unspecified site
CPT/HCPCS: 76706

== ENCOUNTER → 2023-02-04 12:52 | Outpatient (CLI) | payer OTHER, SELFPAY ==
--- NOTE | 2023-02-04 12:53 | DI.RAD.S_ITS ---
PROCEDURE: XR CHEST 2V INDICATIONS: Rule out postsurgical pneumonia TECHNIQUE: 2 views of the chest were acquired. COMPARISON: None. FINDINGS: Surgical changes and devices: None. Lungs and pleura: Lungs are clear. No pleural effusions or pneumothorax. Mediastinum: Mediastinal contours are normal. Heart size is normal. Bones and chest wall: No suspicious bony abnormalities. Soft tissues appear unremarkable. IMPRESSION: No concerning consolidation. Dictated by: Javan Purvis M.D. on 02/04/2023 at 13:04 Approved by: Javan Purvis M.D. on 02/04/2023 at 13:04
== END ==
PROVIDERS: Family Provider Internal Medicine; PCP Physician Assistant; Referring Provider Registered Nurse; Visit Provider Registered Nurse
DX: R05.9 Cough, unspecified (principal)
CPT/HCPCS: 71046

== ENCOUNTER 2023-02-27 12:30 | Day surgery (SDC) | payer OTHER, SELFPAY ==
--- NOTE | 2023-02-27 | PATH_ITS ---
[facility] Accession Number: [id number] No. of containers..03 Tissue . 01 Material submitted: . PART A: colon - TRANSVERSE COLON POLYP PART B: colon - ASCENDING COLON POLYP PART C: colon - DESCENDING COLON POLYP . 01 Diagnosis: A. Transverse Colon Polyp: Tubular adenoma. . B. Ascending Colon Polyp: Tubular adenoma. . C. Descending Colon Polyp: Tubular adenoma. MRV 03/01/2023 1417 Local . 01 Electronically signed: . Ruiz Zheng MD, PhD, Pathologist NPI- [id number] . 01 Gross description: . Part A: TRANSVERSE COLON POLYP: Received in formalin is 1 fragment(s) of stinson, soft tissue measuring 0.7 x 0.6 x 0.6 cm submitted entirely in 1 cassette(s) Part B: ASCENDING COLON POLYP: Received in formalin are 4 fragment(s) of stinson, soft tissue measuring 0.2 x 0.2 x 0.2 cm to 0.5 x 0.5 x 0.3 cm submitted entirely in 1 cassette(s) Part C: DESCENDING COLON POLYP: Received in formalin is 1 fragment(s) of stinson, soft tissue measuring 0.3 x 0.2 x 0.2 cm submitted entirely in 1 cassette(s) /DANI 02/28/2023 1929 Local . 01 Pathologist provided ICD-10: D12.3, D12.2, D12.4 . 01 CPT . 719708, 404863, 738561 Specimen Comment: A courtesy copy of this report has been sent to [phone] Performed at: 01 [facility] [address] [place] [address] [address], [place], [place] [id number] MD Rashid Moyer MD Phone: [phone]
[2023-02-27 13:12] VITALS: BMI 31.4
[2023-02-27] MEDS: LACTATED RINGERS 1,000 ML 100 ML IV (13:25)
--- NOTE | 2023-02-27 13:32 | P.HP_ITS ---
History of Present Illness History of Present Illness Date Patient Seen: 02/27/23 Time Patient Seen: 13:32 Chief complaint: Screening Colonoscopy Narrative: Here for colon cancer screening. Asymptomatic. [facility] Social History Smoking Status: Former smoker alcohol intake: current Meds Home Medications and Allergies Home Medications Medication Instructions Recorded Confirmed Type allopurinol 100 mg tablet 100 mg PO QDAY ##0 10/06/16 02/27/23 History colchicine 0.6 mg capsule 0.6 mg PO QDAY ##0 10/06/16 02/27/23 History simvastatin 40 mg tablet 40 mg PO HS ##0 10/06/16 02/27/23 History Allergies Allergy/AdvReac Type Severity Reaction Status Date / Time No Known Drug Allergies Allergy Verified 02/27/23 12:57 Review of Systems Review of Systems ROS: Yes All systems reviewed with the patient and are negative except as otherwise documented Exam Const General: cooperative HENMT Head: normal to inspection Eyes General: appearance normal, both eyes and all related structures Neck Neck: normal visual inspection Chest Chest: normal inspection of the chest Resp Effort & Inspection: normal respiratory effort Cardio Rate: regular rate GI Inspection: normal to inspection Skin General: no rashes or lesions noted Neuro General: patient alert and patient awake Extrem General: normal to inspection and no pedal edema Psych Appearance: grossly normal Assessment & Plan Assessment & Plan narrative: 72-year-old male here for colon cancer screening. Colonoscopy is pursued today.
--- NOTE | 2023-02-27 13:33 | PM.PREOP ---
Pre-operative Note Interval Note History & Physical reviewed/Exam performed by Physician: Yes Changes to H&P: No ASA Class (for procedural sedation): II
--- NOTE | 2023-02-27 14:01 | PM.OP.COLON ---
Operative Date/Time/Diagnoses Date of procedure: 02/27/23 Time of procedure: 14:01 Pre-op diagnosis: Indicated for colon cancer screening. Post-op diagnosis: same Procedure & Clinicians Study performed: Colonoscopy with hot and cold snare polypectomy Same procedure as scheduled: Yes Indications: Colon cancer screening Surgeon: Mumtaz Argueta Procedure Notes SCOAP/Timeout: Done Procedure in detail: After the risks and benefits were explained, written and verbal informed consent was obtained. The patient was brought into the procedure room and placed into the left lateral decubitus position. Please see anesthesia notes for sedation details. Digital rectal examination was accomplished. The scope was introduced into the patient and advanced under direct visualization to the cecum as identified by the appendiceal orifice and ileocecal valve. The scope was slowly withdrawn to carefully examine the mucosa for any defects or lesions. Comprehensive imaging was accomplished throughout the rectum including the dentate line. The colon was decompressed, the scope was then removed from the patient who tolerated the procedure well. Adult colonoscope Bowel prep fair; with copious irrigation and suction this was rendered adequate. Scope withdrawal time: 11 minutes Sedation minutes: 22 Complications: none Impression: The patient had an approximately 10 mm transverse colon polyp removed with hot snare. There was another approximately 10 mm ascending colon polyp removed with hot snare. In the descending colon there was a 5 mm polyp removed with cold snare. Within the limitations of bowel prep no other significant pathology was appreciated throughout. There was a small polypoid structure in the proximal sigmoid that strongly suggested an inverted diverticulum based on the pit pattern. I elected to not touch this 5 mm lesion. Grade 1-2 hemorrhoids were noted on direct views. The patient had a fairly lengthy redundant colon. At the end of the procedure there were some small areas of subepithelial hemorrhage consistent with the CT scratch pattern. This was clearly related to the scope itself as I did not see any of these features when we 1st arrived in the rectum. Endoscopic diagnosis 1. Colon polyps 2. Grade 1 to grade 2 hemorrhoids Post-procedure Plan for aftercare: 1. Await histopathology 2. Repeat colonoscopy 3 years. Disposition: PACU
[2023-02-27 14:03] VITALS: BP 117/68; PULSE 67; RESP 18; TEMP 36.7; O2SAT 96
[2023-02-27 14:08] VITALS: BP 120/68; PULSE 65; RESP 16; O2SAT 95
[2023-02-27 14:12] VITALS: BP 126/67; PULSE 61; RESP 12; O2SAT 97
[2023-02-27 14:17] VITALS: BP 133/61; PULSE 64; RESP 18; TEMP 36.4; O2SAT 99
[2023-02-27 14:47] VITALS: BP 133/72; PULSE 77; RESP 16; TEMP 36.8; O2SAT 98
== END 2023-02-27 14:53 | disposition home or self-care (01) ==
PROVIDERS: Family Provider Internal Medicine; PCP Physician Assistant; Referring Provider Internal Medicine Gastroenterology; Visit Provider Internal Medicine Gastroenterology
PROC: 0DJD8ZZ Inspection of Lower Intestinal Tract, Via Natural or Artificial Opening Endoscopic (ICD-10-PCS; CPT 45378; principal; 2023-02-27 13:30)
DX: Z12.11 Encounter for screening for malignant neoplasm of colon (principal); K64.1 Second degree hemorrhoids; D12.3 Benign neoplasm of transverse colon; D12.2 Benign neoplasm of ascending colon; D12.4 Benign neoplasm of descending colon
CPT/HCPCS: 45385; J2704

== ENCOUNTER → 2024-05-30 10:18 | Outpatient (CLI) | payer OTHER, SELFPAY ==
[2024-05-30 10:56] LABS: Add Manual Diff / Slide Review NO; Basophils Absolute Auto 0 /uL (0-100); Basophils Percent Auto 0.9 % (0-2); Eosinophils Absolute Auto 200 /uL (0-450); Eosinophils Percent Auto 4.3 % (2-4); Hematocrit 42.6 % (41-53); Hemoglobin 14.3 g/dL (13.5-17.5); Lymphocytes Absolute Auto 1700 /uL (1100-4500); Lymphocytes Percent Auto 29.8 % (25-40); Mean Corpuscular HGB Conc 33.6 % (30-36); Mean Corpuscular Hemoglobin 32.4 PG (26-34); Mean Corpuscular Volume 96.4 fL (80-100); Monocytes Absolute Auto 500 /uL (0-900); Monocytes Percent Auto 8.3 % (3-14); Neutrophils Absolute Auto 3200 /uL (1500-7000); Neutrophils Percent Auto 56.7 % (50-75); Platelet Count 147 X10^3/uL (150-400); Red Blood Cell Count 4.42 X10^6/uL (4.5-5.9); Red Cell Distribution Width 13.4 % (11.6-14.8); White Blood Cell Count 5.6 X10^3/uL (4.5-11.0)
[2024-05-30 11:28] LABS: Alanine Aminotransferase 32 IU/L (<50); Albumin 4.1 g/dL (3.5-5.0); Albumin Globulin Ratio 1.6 (1.0-2.8); Alkaline Phosphatase 63 U/L (38-126); Aspartate Aminotransferase 33 IU/L (17-59); BUN Creatinine Ratio 20.9 (6-22); Bilirubin Total 0.8 mg/dL (0.2-1.3); Blood Urea Nitrogen 18 mg/dL (9-20); Calcium 8.6 mg/dL (8.4-10.2); Carbon Dioxide 25 mmol/L (22-32); Chloride 112 mmol/L (98-107); Cholesterol 160 mg/dL (140-199); Estimated Glomerular Filt Rate > 60 mL/min (>60); Globulin 2.6 g/dL (1.7-4.1); Glucose 112 mg/dL (80-110); HDL Cholesterol 46 mg/dL (40-60); HEMOLYSIS < 15 (0-50); LDL Cholesterol Calculated 78 mg/dL (<100); Lipase 270 U/L (23-300); Potassium 4.2 mmol/L (3.4-5.1); Sodium 140 mmol/L (137-145); Total Protein 6.7 g/dL (6.3-8.2); Triglycerides 181 mg/dL (35-150)
[2024-05-30 11:29] LABS: HEMOLYSIS < 15 (0-50); Iron 186 ug/dL (49-181)
[2024-05-30 11:42] LABS: Percent Iron Saturation 69 % (20-50); Total Iron Binding Capacity 270 ug/dL (261-462); Transferrin 213 mg/dL (206-381)
[2024-05-30 11:45] LABS: Hemoglobin A1C% w Est Avg Glu 5.3 % (4.0-6.0)
[2024-05-30 11:51] LABS: Free T3, Triiodothyronine Free 3.69 pg/mL (2.77-5.27); T4 Total Thyroxine 6.12 ug/dL (5.5-11.0)
[2024-05-30 11:55] LABS: Ferritin 342 ng/mL (18-464)
[2024-05-30 12:04] LABS: Thyroid Stimulating Hormone 2.68 uIU/mL (0.47-4.68)
[2024-05-30 12:27] LABS: Erythrocyte Sedimentation Rate 5 MM/HR (0-15)
[2024-05-30 20:16] LABS: High Sensitivity CRP - Cardiac 0.9 mg/L (1.0-3.0)
[2024-06-01 03:41] LABS: Homocysteine 11.7 umol/L (0.0-19.2)
== END ==
LOC: LAB 10:20
PROVIDERS: Family Provider Internal Medicine; PCP Physician Assistant; Referring Provider Nurse Practitioner Family; Visit Provider Nurse Practitioner Family
DX: R53.83 Other fatigue (principal); Z86.39 Personal history of other endocrine, nutritional and metabolic disease; E78.00 Pure hypercholesterolemia, unspecified; R10.10 Upper abdominal pain, unspecified; E34.9 Endocrine disorder, unspecified; Z51.81 Encounter for therapeutic drug level monitoring; E03.9 Hypothyroidism, unspecified; E66.9 Obesity, unspecified
CPT/HCPCS: 36415; 80053; 80061; 82728; 83036; 83090; 83520; 83525; 83540; 83550; 83690; 84432; 84436; 84443; 84481; 84482; 85025; 85651; 86140; 86376